=== PATIENT | female | born 1975 | race Hispanic/Latino ===

== ENCOUNTER 2018-02-09 02:14 | Emergency (ER) | payer SELFPAY ==
[~2018-02-09] VITALS: Ht 162.6 cm; Wt 59.4 kg
[2018-02-09] MEDS ORDERED: CIPROFLOXACN500 MG PO (02:48)
[2018-02-09] MEDS ORDERED: ACIDOPHILUS1 CAP PO (02:48)
[2018-02-09] MEDS ORDERED: CYCLOBENZAPR5 MG PO (02:49)
[2018-02-09 04:49] VITALS: BP 127/72
== END 2018-02-09 04:48 | disposition home or self-care (01) | DRG 880 ==
LOC: ED 02:14
DX: F41.9 Anxiety disorder, unspecified (principal); K80.20 Calculus of gallbladder without cholecystitis without obstruction; K21.9 Gastro-esophageal reflux disease without esophagitis

== ENCOUNTER 2018-03-02 07:33 | Day surgery (SDC) | payer SELFPAY ==
[~2018-03-02 07:33] MED LIST: ACIDOPHILUS1 CAP PO; CIPROFLOXACN500 MG PO; CYCLOBENZAPR5 MG PO; PAROXETINE10 MG PO; RANITIDINE150 MG PO
[2018-03-02 10:21] VITALS: BP 128/85
== END 2018-03-02 10:20 | disposition home or self-care (01) | DRG 392 ==
LOC: ENDO 07:33 → ORM 09:00 → ENDO 09:00
PROVIDERS: ATTEND Surgery
PROC: 0DB48ZX Excision of Esophagogastric Junction, Via Natural or Artificial Opening Endoscopic, Diagnostic (ICD-10-PCS; principal; 2018-03-02)
PROC: 0DB78ZX Excision of Stomach, Pylorus, Via Natural or Artificial Opening Endoscopic, Diagnostic (ICD-10-PCS; 2018-03-02)
DX: K29.50 Unspecified chronic gastritis without bleeding (principal); K82.9 Disease of gallbladder, unspecified